=== PATIENT | male | born 1945 | race Caucasian/White ===

== ENCOUNTER 2024-02-23 09:00 | Day surgery (SDC) | payer MEDICARE ==
[~2024-02-23] VITALS: Ht 172.7 cm; Wt 103.2 kg
[2024-02-23] VITALS (12 sets, daily range): BP systolic 111–159; BP diastolic 54–82; PULSE 52–66; RESP 14–17; TEMP 97.7; O2SAT 94–96
[2024-02-23] MEDS ORDERED: LIDOcaine 1% (10mg/ml) 2ml vial ONE (09:21)
[2024-02-23] MEDS ORDERED: verapamil 2.5 mg/ml inj IV ONE (09:21)
[2024-02-23] MEDS ORDERED: iohexol 350 MG/ML 50ML vial IV ONE (09:22)
[2024-02-23] MEDS ORDERED: midazolam 1 mg/ML 2ml injection ONE ×4 (09:22→11:20)
[2024-02-23] MEDS ORDERED: iohexol 350MG/ML 100ml bottle IV ONE ×3 (09:22→11:18)
[2024-02-23] MEDS ORDERED: heparin 1,000unit/ml 10ml vial 10 ML ONE ×2 (09:22→11:48)
[2024-02-23] MEDS ORDERED: fentaNYL/PF 50MCG/1 ML 2ML syringe ONE (09:22)
[2024-02-23] MEDS ORDERED: LIDOcaine 1% 30ml preserv. free vial ONE (09:22)
[2024-02-23] MEDS ORDERED: AMI200T PO (09:27)
[2024-02-23] MEDS ORDERED: HYDR12.55 PO (09:27)
[2024-02-23] MEDS ORDERED: IRBE300T26 PO (09:27)
[2024-02-23] MEDS ORDERED: GLUC1TAB75 PO (09:27)
[2024-02-23] MEDS ORDERED: METO-384 PO (09:27)
[2024-02-23] MEDS ORDERED: nitroGLYCERIN 500mcg/5mL D5W 5 ML IV ONE (09:27)
[2024-02-23] MEDS ORDERED: RIVA20TA PO (09:27)
[2024-02-23] MEDS ORDERED: PRAV40TA3 PO (09:27)
[2024-02-23] MEDS ORDERED: AMLO5TAB16 PO (09:27)
[2024-02-23] MEDS: normal saline 1,000 ML IV SCH (09:48)
[2024-02-23] MEDS: diphenhydrAMINE 25mg capsule PO PRN (09:48)
[2024-02-23 09:53] LABS: BASOPHILS % (AUTO) 0.5 % (0-1); EOSINOPHILS # (AUTO) 0.1 X10'3 (0-0.9); EOSINOPHILS % (AUTO) 0.9 % (0-6); HEMATOCRIT 39.8 % (42.0-52.0); HEMOGLOBIN 13.7 g/dl (14.0-17.9); LYMPHOCYTES % (AUTO) 22.1 % (21-51); MEAN CORPUSCULAR HGB CONC 34.5 g/dL (33.0-36.5); MEAN PLATELET VOLUME 7.8 FL (7.4-10.4); MONOCYTES # (AUTO) 0.6 X10'3 (0-0.9); MONOCYTES % (AUTO) 7.2 % (2-12); NEUTROPHILS # (AUTO) 6.2 X10'3 (1.8-7.7); NEUTROPHILS % (AUTO) 69.3 % (42-75); PLATELET COUNT 327 X10'3 (140-440); RED BLOOD COUNT 4.58 X10'6 (4.70-6.10); RED CELL DISTRIBUTION WIDTH 14.2 % (11.5-14.5)
[2024-02-23 09:54] LABS: PROTHROMBIN TIME 10.8 SECONDS (9.0-12.0)
[2024-02-23 10:17] LABS: ALBUMIN 4.1 G/DL (3.4-5.0); ANION GAP 11 (8-16); BLOOD UREA NITROGEN 14 MG/DL (7-18); BUN/CREATININE RATIO 11.4 (10.0-20.0); CALCIUM 9.3 MG/DL (8.5-10.1); CHLORIDE 104 MMOL/L (99-107); CREATININE 1.23 MG/DL (0.60-1.10); GLUCOSE 118 MG/DL (70-104); MAGNESIUM 2.2 MG/DL (1.5-2.4); POTASSIUM 3.9 MMOL/L (3.5-5.1); SODIUM 140 MMOL/L (135-145); TOTAL CARBON DIOXIDE 24.8 MMOL/L (24-32); eCRCL 49 ML/MIN; eGFR 57 ML/MIN
[2024-02-23] MEDS ORDERED: HYDROmorphone 1 mg/ml syringe ONE ×2 (11:24→11:43)
[2024-02-23] MEDS ORDERED: heparin 1,000 UNITS/NS 500ml 500 ML ONE (11:24)
[2024-02-23] MEDS ORDERED: clopidogrel 300mg tablet ONE (12:07)
[2024-02-23] MEDS ORDERED: aspirin 325mg tablet ONE (12:11)
[2024-02-23] MEDS: sodium bicarbonate 1meq/ml syr 150 ML in dextrose 5%-water 1,000 ML IV SCH (12:30)
[2024-02-23] MEDS ORDERED: proCHLORperazine 10 MG/2 ml inj IV PRN (12:50)
[2024-02-23] MEDS ORDERED: ondansetron/PF 4mg/2ml inj IV PRN (12:50)
[2024-02-23] MEDS ORDERED: HYDROcodone/acetaminophen 5mg/325mg tablet PO PRN (12:50)
[2024-02-23] MEDS ORDERED: HYDROcodone/acetaminophen 10/325mg tab PO PRN (12:50)
== END 2024-02-23 16:15 | disposition home or self-care (01) ==
LOC: SSTAY O 09:00
PROVIDERS: ATTEND Internal Medicine Cardiovascular Disease
DX: R94.39 Abnormal result of other cardiovascular function study (principal); I49.1 Atrial premature depolarization; I10 Essential (primary) hypertension; I48.0 Paroxysmal atrial fibrillation; E78.5 Hyperlipidemia, unspecified; I35.0 Nonrheumatic aortic (valve) stenosis; Z79.01 Long term (current) use of anticoagulants; Z79.899 Other long term (current) drug therapy
CPT/HCPCS: 36415; 80048; 83735; 85025; 85610; 92978; 93005; 99152; 99153; C1874; C9600; J1170; J1644; J2250; J3010; J3490; J7030; J7070; Q0163; Q9967; 93458; A4615; A6258; C1725; C1751; C1753; C1760; C1769; C1892; C1894